=== PATIENT | male | born 1930 | race Caucasian/White ===

== ENCOUNTER 2017-02-23 18:37 | Inpatient (IN) | payer OTHER ==
--- NOTE | ~2017-02-23 | DS ---
Discharge Summary [address] [place]. [address] NAME: ISAIAH KRISHNAMURTHY : [birth year] STATUS : DIS IN PAT#: [id number] AGE: 86 ADM/REG DATE : 02/23/17 MR#: [id number] REPORT SERV DATE: 02/28/17 DICTATED BY: ИВАН MACDONALD DATE: 02/28/17 REPORT STATUS : Draft TRANSCRIBED BY: MODL DATE: 02/28/17 ADMISSION DATE: 02/23/2017 DISCHARGE DATE: 02/28/2017 Discharged to inpatient hospice center. DIAGNOSES ON ADMISSION: 1. Likely new-onset congestive heart failure. 2. Coronary artery disease with a history of CABG. 3. Recent hypotension. 4. Solitary kidney. 5. Urinary retention. 6. Atrial fibrillation. 7. Diabetes type 2. 8. Hyperlipidemia. DIAGNOSES ON DISCHARGE: 1. Acute congestive heart failure exacerbation/severe congestive heart failure with severely decreased left ventricular ejection fraction of 25% with severely decreased right ventricular systolic function with biatrial dilatation with moderate pulmonary hypertension, and moderate to severe tricuspid regurgitation. 2. Left-sided pleural effusion status post thoracentesis, transudative, secondary to congestive heart failure. 3. Solitary kidney. 4. Urinary retention. 5. Severe cachexia/severe protein calorie malnourishment. 6. History of paroxysmal atrial fibrillation, currently rate controlled. 7. History of solitary kidney. 8. Mild diabetes. 9. Urinary retention status post Agarwal catheter placement. CONSULTANTS ON THE CASE: Unit Supervisor, Dr. Owen Eddy. IMAGING STUDIES: Echocardiogram done on 02/25/2017 showed severely decreased left ventricular systolic function with calculated ejection fraction of 25%. Severely decreased right ventricular systolic function; biatrial dilatation; diastolic dysfunction with elevated filling pressure, stable; mitral valve repair with residual mild mitral regurgitation; moderate pulmonary hypertension with moderate to severe tricuspid regurgitation; mildly dilated ascending aorta; elevated right atrial and central venous pressures; and left-sided pleural effusion. HISTORY OF PRESENT ILLNESS: This is a very pleasant 86-year-old male, who was admitted by my colleague Dr. Petty on 02/23/2017 for severe dyspnea, shortness of breath, and urinary retention. He had hypotension at home, and he was holding his diuretics and blood pressure medications. He had severe clinical dyspnea and severe CHF. For details, see history of present illness dictated by Dr. Petty on 02/23/2017. Discharge Summary [facility] [address] [place]. [address] NAME: ISAIAH KRISHNAMURTHY : [birth year] STATUS : DIS IN PAT#: [id number] AGE: 86 ADM/REG DATE : 02/23/17 MR#: [id number] REPORT SERV DATE: 02/28/17 DICTATED BY: ИВАН MACDONALD DATE: 02/28/17 REPORT STATUS : Draft TRANSCRIBED BY: SABAS DATE: 02/28/17 HOSPITAL COURSE: Briefly, the patient was seen by my colleague Dr. Martínez until 02/26/2017, and because the patient had severe dyspnea, severe shortness of breath, and she ordered thoracentesis in the hope that dyspnea will improve. Also, the patient was continued on intravenous Bumex, and his severe dyspnea improved a little bit, but he still had shortness of breath at rest, and he was not having good sleep. Echocardiogram revealed severe congestive heart failure. The patient is severely malnourished and cachectic. Unit Supervisor Dr. Eddy was consulted, and he was taking into consideration the patient's severe congestive heart failure, cachexia, advanced age, and overall poor prognosis. Hospice was recommended, and Dr. Eddy was also recommending hospice, so hospice was consulted. I spoke with the patient's son, and he understood the severity of his father's disease and poor prognosis, and he was also agreeable with the hospice. Hospice evaluated the patient today and he was discharged today to inpatient hospice. /SABAS Иван Macdonald M.D. / [id number] CC: Cecilia Zamora M.D. Brian Negus, M.D.
--- NOTE | ~2017-02-23 | CN ---
Consultation Report [id number] [facility] [place]. [address] NAME: ISAIAH KRISHNAMURTHY : [birth year] STATUS : ADM IN [facility]#: [id number] AGE: 86 ADM/REG DATE : 02/23/17 MR#: [id number] REPORT SERV DATE: 02/26/17 DICTATED BY: REYNALDO LAGOS DATE: 02/26/17 REPORT STATUS : Draft TRANSCRIBED BY: SABAS DATE: 02/26/17 CARDIOLOGY CONSULTATION NOTE DATE OF CONSULTATION: 02/26/2017 PRIMARY FLOOR CASHIER: Reynaldo Lagos M.D. CHIEF COMPLAINT: Shortness of breath. REASON FOR CONSULTATION: Shortness of breath. SOURCE: Patient chart. HISTORY OF PRESENT ILLNESS: Mr. Krishnamurthy is a very pleasant 86-year-old white man with a history of coronary artery disease, status post inferior myocardial infarction angioplasty and bare metal stenting of the RCA in 2006, subsequent coronary artery bypass grafting and mitral valve annuloplasty ring in 06/2007. I last saw him in September. Since then, he reports that over the last week or two, he has had increasing shortness of breath and lower extremity swelling. He has not had any chest pain, palpitations, or syncope. He was admitted to the hospital three days ago because of continued shortness of breath despite diuretic therapy. We were asked to see him in consultation. He had thoracentesis today which seems to have helped a little bit. He is still short of breath at rest. REVIEW OF SYSTEMS: All other systems are negative. ALLERGIES: NO KNOWN DRUG ALLERGIES. MEDICATIONS: At home included aspirin, Zocor, and Flomax. In the hospital, he is now on aspirin, Bumex, carvedilol, subcutaneous heparin, insulin, Zocor, and Flomax as well as phenazopyridine. CARDIAC RISK FACTORS: Diabetes, hypertension, hyperlipidemia, and chewing tobacco. FAMILY HISTORY: Denies. SOCIAL HISTORY: The patient lives in [place], [place]. He is . His about a year ago. He is retired. FAMILY HISTORY: Negative for coronary artery disease at young age. PAST MEDICAL HISTORY: Significant for coronary artery disease, status post inferior myocardial infarction angioplasty and bare metal stenting in 04/2007; coronary artery bypass grafting and mitral valve annuloplasty ring in 06/2007; previous participation in the Consultation Report [facility] [address] [address] NAME: ISAIAH KRISHNAMURTHY : [birth year] STATUS : ADM IN [facility]#: [id number] AGE: 86 ADM/REG DATE : 02/23/17 MR#: [id number] REPORT SERV DATE: 02/26/17 DICTATED BY: REYNALDO LAGOS DATE: 02/26/17 REPORT STATUS : Draft TRANSCRIBED BY: MODJayson DATE: 02/26/17 "improve it" research trial for hyperlipidemia; hypertension; first-degree AV block; right bundle-branch block; and left anterior fascicular block on EKG; atrial fibrillation with hospitalization in 04/2007; diabetes mellitus; chronic venous insufficiency; hypotension, necessitating discontinuance of blood pressure medications including lisinopril, Lasix, and metoprolol; and bladder abnormalities, followed by Dr. Reed of Urology. PHYSICAL EXAMINATION: GENERAL: He is an acutely and chronically ill and cachectic-appearing very elderly white man, in moderate respiratory distress. VITAL SIGNS: Blood pressure is 105/52, pulse 92, temperature 99.3, and weight is 78.9 kg. HEENT: Sclerae are anicteric. Lips without cyanosis. Carotids 2+ and symmetrical. Bilateral transmitted murmurs versus bruits. JVD to the angle of the jaw. Temporalis wasting. LUNGS: Increased respiratory rate. Shallow inspiration. Some use of accessory muscles. Few rales. Diminished breath sounds at bases. HEART: Irregularly irregular, 2/6 systolic murmur. No heaves or thrills. ABDOMEN: Positive bowel sounds. Soft, nontender. EXTREMITIES: 3+ edema. Pulses 2+ and symmetrical. BACK: No CVA tenderness. MUSCULOSKELETAL: Diminished tone. NEUROLOGIC: Alert and oriented x3. IMAGING: Telemetry reveals atrial fibrillation. EKG reveals atrial fibrillation, indeterminate axis, right bundle-branch block, inferior myocardial infarction of undetermined age. The echocardiogram: Severely depressed left ventricular systolic function with LVEF of 25%. Severely decreased RV systolic function. Biatrial dilatation, diastolic dysfunction, stable mitral valve repair with mild MR. Moderate pulmonary hypertension. Moderate to severe tricuspid regurgitation. Mildly dilated ascending aorta. Elevated right atrial and central venous pressure, left-sided pleural effusion. No previous study for immediate comparison. LABORATORY EXAMINATION: Included sodium 140, potassium 4.4, chloride 100, CO2 of 33, glucose 77, BUN 26, creatinine 1.20. White count 7.6, hemoglobin 11.2, hematocrit 34.9, platelets 193,000. INR 1.3. PTT of 37.3. IMPRESSION: 1. Acute on chronic systolic congestive heart failure. 2. Severely depressed left ventricular systolic function with LVEF of 25% by echo. 3. Cachexia with muscle wasting. 4. Coronary artery disease, status post myocardial infarction angioplasty and bare metal stenting of RCA in 04/2007 and coronary bypass grafting and mitral valve ring 06/2007. 5. History of paroxysmal atrial fibrillation. Now in atrial fibrillation. 6. Cardiac risk factors including diabetes, hypertension, and hyperlipidemia. 7. CHADS2 score of at least 4 for diabetes, hypertension, congestive heart failure, and Consultation Report [address] [address] NAME: ISAIAH KRISHNAMURTHY : [birth year] STATUS : ADM IN [facility]#: [id number] AGE: 86 ADM/REG DATE : 02/23/17 MR#: [id number] REPORT SERV DATE: 02/26/17 DICTATED BY: REYNALDO LAGOS. DATE: 02/26/17 REPORT STATUS : Draft TRANSCRIBED BY: SABAS DATE: 02/26/17 age over 75. RECOMMENDATIONS: 1. Diuresis with IV Bumex. 2. SUSANA hose. 3. Check pre-albumin level, improve nutrition. 4. I agree with hospice. His prognosis appears very poor. Discussed with Dr. Fuchs. 5. Consider anticoagulants though bleeding risk may be high and overall prognosis appears poor. RAPHAEL/SABAS Reynaldo Lagos M.D. / [id number] CC: Cecilia Zamora M.D.
--- NOTE | ~2017-02-23 | HP ---
History And Physical [address] [place]. [address] NAME: ISAIAH KRISHNAMURTHY : [birth year] STATUS : ADM IN PAT#: [id number] AGE: 86 ADM/REG DATE : 02/23/17 MR#: [id number] REPORT SERV DATE: 02/24/17 DICTATED BY: TAL DUMONT DATE: 02/23/17 REPORT STATUS : Draft TRANSCRIBED BY: SABAS DATE: 02/23/17 DATE OF ADMISSION: 02/23/2017 CHIEF COMPLAINT: Shortness of breath. HISTORY OF PRESENT ILLNESS: The patient is an 86-year-old male with past medical history of coronary artery disease with multiple CABG by Dr. 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 Reed with urinary retention who presents after having one week of swelling. The patient reports that he had his followup appointment with Dr. Eddy few weeks back and is accompanied by family, was noted to be hypotensive, and was held off multiple medications including blood pressure medications and diuretics and was to have followup appointment later this week. The patient's family started noting that the patient has had increased swelling including bilateral legs and scrotum although he does not have official diagnosis of heart failure per family, this is quite unique and atypical of his presentation. The patient has had good urine output but has had decreased p.o. intake, decreased exercise tolerance, difficulty lying down with dyspnea on exertion, approximately 90 degrees orthopnea. Symptoms are constant, moderate severity without pain or radiating symptoms. No fevers or chills. No headache. No nausea, vomiting, but does have increased weakness. No diarrhea and does have edema up to abdomen with significant scrotal swelling. Symptoms are worsened with exertion and lying down with deep breath and relieved by sitting up. Symptoms are still currently present, reproducible but also has improved after having oxygen given in emergency room. REVIEW OF SYSTEMS: For 10-point review of systems negative except for that noted in the HPI. PAST MEDICAL HISTORY: Coronary artery disease, CABG, solitary kidney after kidney stones in his youth, per records was also noted to be keq-bgtwjqi-slqjhdrnk diabetes, atrial fibrillation, hyperlipidemia, and arthritis. 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 SURGICAL HISTORY: Include right total nephrectomy, CABG. FAMILY HISTORY: Of retinitis pigmentosa. SOCIAL HISTORY: Does have occasional smokeless tobacco. No illicits or alcohol. approximately one year ago in February 2016. ALLERGIES: NO KNOWN DRUG ALLERGIES. MEDICATIONS: Aspirin, Zocor, and Flomax. Prior diuretics including Lasix and blood pressure medications were recently stopped greater than one week ago. PHYSICAL EXAMINATION: VITAL SIGNS: The patient blood pressure 130/60, temperature 97.6, pulse 90, respirations 12, O2 sats 94% on 2 L by nasal cannula. History And Physical [address] [address] NAME: ISAIAH KRISHNAMURTHY : [birth year] STATUS : ADM IN PAT#: [id number] AGE: 86 ADM/REG DATE : 02/23/17 MR#: [id number] REPORT SERV DATE: 02/24/17 DICTATED BY: TAL DUMONT DATE: 02/23/17 REPORT STATUS : Draft TRANSCRIBED BY: SABAS DATE: 02/23/17 GENERAL: No acute distress. Calm, pleasant, well developed, well nourished elderly, somewhat frail. EYES: No scleral icterus. EOMI. ENT: Nares patent. Tongue midline. Moist mucous membranes. RESPIRATORY: Decreased bibasilar lung ramos with rales. CV: Positive JVD, systolic ejection murmur. Bilateral edema up to abdomen, almost 4+ in lower extremities. GI: Mild abdominal distention but positive bowel sounds. Soft, nontender. : With significant scrotal swelling, uncircumcised, mild erythema. MUSCULOSKELETAL: Moves all extremities. Ambulatory, bilateral edema. SKIN: Warm, dry. Does have scrotal erythema and lymph. EXTREMITIES: 4+ edema bilaterally. HEME: No bleeding or bruising. NEURO: Alert and oriented. Decreased visual acuity and decreased hearing. Symmetrical strength in hands. Weak lower extremities. PSYCH: Appropriate mood and affect, pleasant. DATA: EKG; right bundle noted in prior EKG rate of 93, QTc 487. LABS: BNP of 496.7, BMP within normal limits. Magnesium 2.1. LFTs within normal limits. Troponin negative. Total bilirubin 1.5. Heme profile; WBC count 6.3, H and H 12.8 and 40.1 with platelets of 231, INR 1.2. ASSESSMENT AND PLAN: 1. Likely new congestive heart failure. 2. Coronary artery disease with CABG history. 3. Recent hypotension. 4. Solitary kidney. 5. Urinary retention. 6. Atrial fibrillation. 7. Diabetes type 2. 8. Hyperlipidemia. PLAN: 1. For likely new CHF, IV Bumex. The patient recently had stopped blood pressure medications Lasix. The patient reports that he has not had swelling to this degree. No history of heart failure per family. The patient has been on and off, last dose of Lasix, was trying to get until next week in which he has a followup appointment with Dr. Eddy, however, due to swelling and dyspnea difficulty the with lying down, had to come to emergency room. We will check echocardiogram to confirm ejection fraction as the patient has had notable coronary disease in the past. He has not been on fluid restriction. We will initiate heart failure protocol and fluid restriction. 2. Coronary artery disease, CABG by Dr. Trujillo. Sees Dr. Eddy. He is on aspirin, statin. Start low-dose beta katelynn, low-dose IZZY inhibitor. 3. Recent hypotension. Home BP medications were initially stopped. We will gently restart IZZY inhibitor beta-katelynn for heart failure protocol, and we will see if the patient is able to tolerate. The patient's blood pressure normotensive at this time. 4. Solitary kidney. Monitor, particularly in the setting of restart of IZZY inhibitor and History And Physical [address] [address] NAME: ISAIAH KRISHNAMURTHY : [birth year] STATUS : ADM IN [facility]#: [id number] AGE: 86 ADM/REG DATE : 02/23/17 MR#: [id number] REPORT SERV DATE: 02/24/17 DICTATED BY: TAL DUMONT DATE: 02/23/17 REPORT STATUS : Draft TRANSCRIBED BY: MODL DATE: 02/23/17 labile blood pressure reported at home. 5. Urinary retention. Flomax, Agarwal if needed. 6. Atrial fibrillation history, on beta katelynn. We will defer to Cardiology, anticoagulation if indicated. 7. Diabetes type 2. This is per prior reports, sliding scale insulin. 8. Hyperlipidemia on statin. Discussed code status with the patient. The patient is currently full code. DDN/MODL Tal Dumont MD / [id number] CC: Cecilia Grimaldo M.D.
[~2017-02-23 18:37] MED LIST: ASAB PO; GLUCPH PO; ZOCOR40 PO
[2017-02-23 19:46] LABS: BASOPHILS 0.6 %; BASOPHILS ABSOLUTE 0.04 10/3/uL (0.0-0.16); EOSINOPHILS 4.6 %; EOSINOPHILS ABSOLUTE 0.29 10/3/uL (0.0-0.53); HEMATOCRIT 40.1 % (40.0-51.0); HEMOGLOBIN 12.8 g/dL (13.6-17.8); LYMPHOCYTES 15.7 %; LYMPHOCYTES ABSOLUTE 0.98 10/3/uL (0.67-4.30); MEAN CORPUSCULAR HEMOGLOB 29.5 pg (26.0-34.0); MONOCYTES 13.4 %; MONOCYTES ABSOLUTE 0.84 10/3/uL (0.21-1.20); NEUTROPHILS 65.7 %; NEUTROPHILS ABSOLUTE 4.11 10/3/uL (2.02-8.40); PLATELET COUNT 231 10/3/uL (150-400); RBC DISTRIBUTION WIDTH 15.4 % (12.0-16.0); WHITE BLOOD CELLS 6.3 10/3/uL (4.5-10.5)
[2017-02-23 19:47] LABS: MANUAL DIFF NO %; MEAN CORPUS HGB CONC 31.9 g/dL (32.0-36.0); MEAN CORPUSCULAR VOLUME 92.4 fL (80-100); RED CELL COUNT 4.34 10/6/uL (4.7-6.1)
[2017-02-23 19:55] LABS: INTERNATIONAL NORMAL RATI 1.2 UNITS (-); PARTIAL THROMBO TIME 32.4 SEC (22.5-37.2); PROTIME (NOT ORD) 15.3 SEC (12.0-14.5)
[2017-02-23] MEDS ORDERED: ZOCOR40 PO (19:57)
[2017-02-23] MEDS ORDERED: ASAB PO (19:57)
[2017-02-23] MEDS ORDERED: FLOMAX4 PO (19:57)
[2017-02-23 20:03] LABS: ALBUMIN 3.3 G/DL (3.5-5.0); ALKALINE PHOSPHATASE 127 U/L (45-117); BUN (BLOOD UREA NITROGEN) 18 MG/DL (6-23); CALCIUM, SERUM 8.6 MG/DL (8.5-10.4); CHEST PAIN PROFILE TAT 0 Hrs 21 Mins; CHLORIDE, SERUM 101 MMOL/L (96-112); CO2 (CARBON DIOXIDE) 32 MMOL/L (24-34); DIRECT BILIRUBIN 0.6 MG/DL (0.0-0.4); GFR AFRICAN AMERICAN 69 ML/MIN (>=60); GFR NON AFRICAN AMERICAN 60 ML/MIN (>=60); GLUCOSE, SERUM 108 MG/DL (60-99); INDIRECT BILIRUBIN(NOT ORDER) 0.9 MG/DL (0.1-0.9); POTASSIUM, SERUM 3.9 MMOL/L (3.5-5.3); SGOT(AST) 18 U/L (5-40); SGPT(ALT) 14 U/L (5-65); SODIUM, SERUM 142 MMOL/L (135-148); TOTAL BILIRUBIN 1.5 MG/DL (0-1.2); TOTAL PROTEIN 7.2 G/DL (6.0-8.5); TROPONIN I <0.02 NG/ML (<0.05)
[2017-02-24 06:26] LABS: BASOPHILS 0.6 %; BASOPHILS ABSOLUTE 0.03 10/3/uL (0.0-0.16); EOSINOPHILS 5.1 %; EOSINOPHILS ABSOLUTE 0.25 10/3/uL (0.0-0.53); HEMATOCRIT 36.8 % (40.0-51.0); HEMOGLOBIN 11.8 g/dL (13.6-17.8); LYMPHOCYTES 19.4 %; LYMPHOCYTES ABSOLUTE 0.95 10/3/uL (0.67-4.30); MEAN CORPUS HGB CONC 32.1 g/dL (32.0-36.0); MEAN CORPUSCULAR HEMOGLOB 29.6 pg (26.0-34.0); MEAN CORPUSCULAR VOLUME 92.2 fL (80-100); MEAN PLATELET VOLUME 10.2 fL (9.2-13.0); MONOCYTES 13.9 %; MONOCYTES ABSOLUTE 0.68 10/3/uL (0.21-1.20); NEUTROPHILS ABSOLUTE 2.99 10/3/uL (2.02-8.40); PLATELET COUNT 210 10/3/uL (150-400); RBC DISTRIBUTION WIDTH 15.2 % (12.0-16.0); RED CELL COUNT 3.99 10/6/uL (4.7-6.1); WHITE BLOOD CELLS 4.9 10/3/uL (4.5-10.5)
[2017-02-24 06:27] LABS: MANUAL DIFF NO %
[2017-02-24 06:28] LABS: BUN (BLOOD UREA NITROGEN) 17 MG/DL (6-23); CALCIUM, SERUM 8.5 MG/DL (8.5-10.4); CHLORIDE, SERUM 100 MMOL/L (96-112); CO2 (CARBON DIOXIDE) 34 MMOL/L (24-34); CREATININE 1.07 MG/DL (0.70-1.30); GFR AFRICAN AMERICAN 71 ML/MIN (>=60); GFR NON AFRICAN AMERICAN 62 ML/MIN (>=60); GLUCOSE, SERUM 88 MG/DL (60-99); POTASSIUM, SERUM 4.1 MMOL/L (3.5-5.3); SODIUM, SERUM 141 MMOL/L (135-148)
[2017-02-24 11:25] LABS: ASCORBIC ACID (UR NOT ORDER) NEG (NEG); BILIRUBIN, URINE NEGATIVE (NEG); KETONE, URINE NEGATIVE (NEG); LEUKOCYTE ESTERASE(NOT OR NEG (NEG); WBC (NOT ORDERED) (RFLEX) 1 (0-5)
[2017-02-25 05:00] LABS: BASOPHILS 0.7 %; BASOPHILS ABSOLUTE 0.04 10/3/uL (0.0-0.16); EOSINOPHILS ABSOLUTE 0.34 10/3/uL (0.0-0.53); HEMATOCRIT 35.6 % (40.0-51.0); HEMOGLOBIN 11.4 g/dL (13.6-17.8); IMMATURE GRANULOCYTES 0.2 %; IMMATURE GRANULOCYTES ABSOLUTE 0.01 10/3/uL (0.0-0.11); LYMPHOCYTES 15.5 %; LYMPHOCYTES ABSOLUTE 0.88 10/3/uL (0.67-4.30); MANUAL DIFF NO %; MEAN CORPUSCULAR HEMOGLOB 29.5 pg (26.0-34.0); MEAN PLATELET VOLUME 10.3 fL (9.2-13.0); MONOCYTES 14.3 %; MONOCYTES ABSOLUTE 0.81 10/3/uL (0.21-1.20); NEUTROPHILS 63.3 %; NEUTROPHILS ABSOLUTE 3.58 10/3/uL (2.02-8.40); PLATELET COUNT 198 10/3/uL (150-400); RBC DISTRIBUTION WIDTH 15.3 % (12.0-16.0); RED CELL COUNT 3.87 10/6/uL (4.7-6.1); WHITE BLOOD CELLS 5.7 10/3/uL (4.5-10.5)
[2017-02-25 05:21] LABS: ALBUMIN 3.1 G/DL (3.5-5.0); BUN (BLOOD UREA NITROGEN) 19 MG/DL (6-23); CALCIUM, SERUM 8.6 MG/DL (8.5-10.4); CHLORIDE, SERUM 101 MMOL/L (96-112); CO2 (CARBON DIOXIDE) 32 MMOL/L (24-34); CREATININE 1.03 MG/DL (0.70-1.30); GFR AFRICAN AMERICAN 75 ML/MIN (>=60); GFR NON AFRICAN AMERICAN 65 ML/MIN (>=60); GLOBULIN 3.2 G/DL (2.5-4.1); GLUCOSE, SERUM 80 MG/DL (60-99); PREALBUMIN 9.3 MG/DL (17.0-43.0); SGOT(AST) 16 U/L (5-40); SGPT(ALT) 12 U/L (5-65); SODIUM, SERUM 142 MMOL/L (135-148); TOTAL BILIRUBIN 1.5 MG/DL (0-1.2); TOTAL PROTEIN 6.3 G/DL (6.0-8.5)
[2017-02-25 05:23] LABS: ALKALINE PHOSPHATASE 100 U/L (45-117)
[2017-02-26 04:35] LABS: BASOPHILS 0.4 %; BASOPHILS ABSOLUTE 0.03 10/3/uL (0.0-0.16); EOSINOPHILS 4.1 %; EOSINOPHILS ABSOLUTE 0.31 10/3/uL (0.0-0.53); HEMATOCRIT 34.9 % (40.0-51.0); HEMOGLOBIN 11.2 g/dL (13.6-17.8); IMMATURE GRANULOCYTES 0.1 %; IMMATURE GRANULOCYTES ABSOLUTE 0.01 10/3/uL (0.0-0.11); LYMPHOCYTES 12.1 %; LYMPHOCYTES ABSOLUTE 0.92 10/3/uL (0.67-4.30); MEAN CORPUS HGB CONC 32.1 g/dL (32.0-36.0); MEAN CORPUSCULAR HEMOGLOB 29.7 pg (26.0-34.0); MEAN CORPUSCULAR VOLUME 92.6 fL (80-100); MEAN PLATELET VOLUME 10.3 fL (9.2-13.0); MONOCYTES 11.8 %; NEUTROPHILS 71.5 %; NEUTROPHILS ABSOLUTE 5.44 10/3/uL (2.02-8.40); PLATELET COUNT 193 10/3/uL (150-400); RBC DISTRIBUTION WIDTH 15.1 % (12.0-16.0); RED CELL COUNT 3.77 10/6/uL (4.7-6.1); WHITE BLOOD CELLS 7.6 10/3/uL (4.5-10.5)
[2017-02-26 04:36] LABS: MANUAL DIFF NO %
[2017-02-26 04:41] LABS: PARTIAL THROMBO TIME 37.3 SEC (22.5-37.2)
[2017-02-26 04:42] LABS: INTERNATIONAL NORMAL RATI 1.3 UNITS (-); PROTIME (NOT ORD) 16.4 SEC (12.0-14.5)
[2017-02-26 04:51] LABS: A/G RATIO 1.1 (0.7-1.9); ALBUMIN 3.4 G/DL (3.5-5.0); ALKALINE PHOSPHATASE 99 U/L (45-117); CALCIUM, SERUM 8.4 MG/DL (8.5-10.4); CHLORIDE, SERUM 100 MMOL/L (96-112); CO2 (CARBON DIOXIDE) 33 MMOL/L (24-34); GFR AFRICAN AMERICAN 62 ML/MIN (>=60); GFR NON AFRICAN AMERICAN 54 ML/MIN (>=60); GLOBULIN 3.2 G/DL (2.5-4.1); GLUCOSE, SERUM 77 MG/DL (60-99); POTASSIUM, SERUM 4.4 MMOL/L (3.5-5.3); SGOT(AST) 14 U/L (5-40); SGPT(ALT) 9 U/L (5-65); SODIUM, SERUM 140 MMOL/L (135-148); TOTAL BILIRUBIN 1.4 MG/DL (0-1.2); TOTAL PROTEIN 6.6 G/DL (6.0-8.5)
[2017-02-26 04:59] LABS: BUN (BLOOD UREA NITROGEN) 26 MG/DL (6-23)
[2017-02-26 14:22] LABS: LDH BODY FLUID (NOT ORD) 74 U/L
[2017-02-26 14:24] LABS: BD FL SOURCE (NOT ORD) PLEURAL
[2017-02-26 14:26] LABS: BF TOTAL CELL CT (NOT ORD 111 /MM3; BODY FLUID RBC (NOT ORD) 427 /MM3
[2017-02-26 14:33] LABS: BD FL LYMPH (NOT ORD) 53 %; BF BASO (NOT OF) 0 %; BF LARGE MONONUCLEAR 35 %; BODY FLUID EOS (NOT ORD) 0 %; BODY FLUID SEG (NOT ORD) 12 %
[2017-02-27 06:14] LABS: BASOPHILS 0.4 %; BASOPHILS ABSOLUTE 0.03 10/3/uL (0.0-0.16); EOSINOPHILS ABSOLUTE 0.15 10/3/uL (0.0-0.53); HEMATOCRIT 34.6 % (40.0-51.0); HEMOGLOBIN 11.1 g/dL (13.6-17.8); IMMATURE GRANULOCYTES 0.1 %; IMMATURE GRANULOCYTES ABSOLUTE 0.01 10/3/uL (0.0-0.11); LYMPHOCYTES ABSOLUTE 0.89 10/3/uL (0.67-4.30); MANUAL DIFF NO %; MEAN CORPUS HGB CONC 32.1 g/dL (32.0-36.0); MEAN CORPUSCULAR HEMOGLOB 29.6 pg (26.0-34.0); MEAN CORPUSCULAR VOLUME 92.3 fL (80-100); MEAN PLATELET VOLUME 10.5 fL (9.2-13.0); MONOCYTES 12.8 %; MONOCYTES ABSOLUTE 0.95 10/3/uL (0.21-1.20); NEUTROPHILS 72.7 %; NEUTROPHILS ABSOLUTE 5.41 10/3/uL (2.02-8.40); PLATELET COUNT 189 10/3/uL (150-400); RED CELL COUNT 3.75 10/6/uL (4.7-6.1); WHITE BLOOD CELLS 7.4 10/3/uL (4.5-10.5)
[2017-02-27 06:20] LABS: BUN (BLOOD UREA NITROGEN) 32 MG/DL (6-23); CALCIUM, SERUM 8.3 MG/DL (8.5-10.4); CHLORIDE, SERUM 98 MMOL/L (96-112); CO2 (CARBON DIOXIDE) 34 MMOL/L (24-34); CREATININE 1.22 MG/DL (0.70-1.30); GFR AFRICAN AMERICAN 61 ML/MIN (>=60); GFR NON AFRICAN AMERICAN 53 ML/MIN (>=60); GLUCOSE, SERUM 76 MG/DL (60-99); SODIUM, SERUM 140 MMOL/L (135-148)
[2017-02-27 06:28] LABS: PREALBUMIN 8.5 MG/DL (17.0-43.0)
[2017-02-28 06:46] LABS: BUN (BLOOD UREA NITROGEN) 34 MG/DL (6-23); CALCIUM, SERUM 8.5 MG/DL (8.5-10.4); CHLORIDE, SERUM 97 MMOL/L (96-112); CO2 (CARBON DIOXIDE) 34 MMOL/L (24-34); CREATININE 1.22 MG/DL (0.70-1.30); GFR AFRICAN AMERICAN 61 ML/MIN (>=60); GFR NON AFRICAN AMERICAN 53 ML/MIN (>=60); GLUCOSE, SERUM 79 MG/DL (60-99); POTASSIUM, SERUM 3.9 MMOL/L (3.5-5.3); SODIUM, SERUM 139 MMOL/L (135-148)
== END 2017-02-28 13:28 | disposition hospice, inpatient (51) | DRG 291 ==
LOC: ER 18:37 → 5NO 22:47
PROVIDERS: Emergency Medicine; Hospitalist; Internal Medicine; Student in an Organized Health Care Education/Training Program
PROC: 0W993ZZ Drainage of Right Pleural Cavity, Percutaneous Approach (ICD-10-PCS; principal; 2017-02-26)
DX: I50.23 Acute on chronic systolic (congestive) heart failure (principal); E43 Unspecified severe protein-calorie malnutrition; J90 Pleural effusion, not elsewhere classified; Q60.0 Renal agenesis, unilateral; I27.2 Other secondary pulmonary hypertension; E11.9 Type 2 diabetes mellitus without complications; R64 Cachexia; I48.0 Paroxysmal atrial fibrillation; Z95.1 Presence of aortocoronary bypass graft; E78.5 Hyperlipidemia, unspecified; R33.9 Retention of urine, unspecified; Z68.28 Body mass index [BMI] 28.0-28.9, adult; I25.2 Old myocardial infarction; Z95.5 Presence of coronary angioplasty implant and graft; Z51.5 Encounter for palliative care
CPT/HCPCS: 32555; 71010; 71020; 80048; 80053; 80076; 81001; 82962; 83036; 83615; 83735; 83880; 84134; 84484; 85025; 85610; 85730; 87070; 87205; 88112; 88305; 89051; 93005; 93306; 99285; A9270-GY; P9047